=== PATIENT | female | born 1940 | race Caucasian/White ===

== ENCOUNTER 2021-04-21 14:30 | Observation (INO) ==
[2021-04-21 15:26] LABS: Bacteria,Urine Few per hpf (None-Few); Bilirubin,Urine Negative (Negative); Blood,Urine Trace (Negative); Clarity,Urine Clear (Clear); Color,Urine Light-Yellow (Yellow); Glucose,Urine (UA) Normal (Normal); Hyaline Casts,Urine Few per lpf (None Seen); Ketones,Urine Negative (Negative); Leukocyte Esterase,Urine Small (Negative); Mucus,Urine Few per lpf (None-Few); Nitrite,Urine Positive (Negative); PH,Urine 5.5 pH Units (5.0-8.0); Protein,Urine 30 mg/dL (Neg-Trace); RBC,Urine 0-3 per hpf (0-3); Specific Gravity,Urine 1.011 (1.010-1.025); Squamous Epithelial Cell,Urine Few per hpf (None-Few); Urobilinogen,Urine Normal (Normal); WBC,Urine 30-50 per hpf (0-3)
[2021-04-21 15:30] LABS: Amphetamine Screen,Urine Negative ng/mL (Cutoff=1000); Barbiturate Screen,Urine Negative ng/mL (Cutoff=200); Benzodiazepines Screen,Urine Negative ng/mL (Cutoff=200); Cannabinoid Screen,Urine Negative ng/mL (Cutoff = 50); Cocaine Screen,Urine Negative ng/mL (Cutoff= 300); Opiate Screen,Urine Negative ng/mL (Cutoff=300); Phencyclidine Screen,Urine Negative ng/mL (Cutoff=25)
[2021-04-21 15:34] LABS: Basophils % 0.3 %; Hemoglobin 10.5 g/dL (11.5-15.4); Immature Granulocytes % 0.6 % (0-4); Lymphocytes # 2.3 K/mcL (0.6-4.6); Lymphocytes % 33.1 %; Mean Corpuscular Hemoglobin 26.8 pg (28.0-33.3); Mean Corpuscular Volume 89.3 fL (83.0-100.0); Mean Platelet Volume 8.8 fL (9.4-12.4); Monocytes # 0.6 K/mcL (0.0-1.3); Monocytes % 8.8 %; Neutrophils # 4.1 K/mcL (1.6-8.9); Platelet Count 243 K/mcL (140-400); Red Blood Count 3.92 M/mcL (3.82-4.97); Red Cell Distribution Width 16.3 % (11.5-14.5); Segmented Neutrophils % 57.2 %; White Blood Count 7.1 K/mcL (4.3-11.1)
[2021-04-21 15:57] LABS: Acetaminophen < 10 mcg/mL (10-20); BUN/Creatinine Ratio 11 (6-26); Blood Urea Nitrogen 21 mg/dL (8-23); Calcium 9.1 mg/dL (8.6-10.3); Carbon Dioxide 25 mEq/L (23-29); Chloride 108 mEq/L (98-107); Ethanol < 10 mg/dL (Less than 10); Glucose 128 mg/dL (70-105); Osmolality,Calculated 295 (280-300); Potassium 5.1 mEq/L (3.5-5.1); Salicylate < 2.5 mg/dL (15.0-30.0); Sodium 140 mEq/L (136-145); eGFR For African Americans 31 (> 60); eGFR For Non-African Americans 26 (> 60)
[2021-04-21] MEDS ORDERED: Sulfamethoxazole/Trimeth DS 1 EACH TABLET PO ONE (16:04)
[2021-04-21] MEDS ORDERED: OLANZapine 5 MG TAB.RAPDIS PO ONE (22:45)
[2021-04-21 22:46] LABS: Influenza A PCR Negative (Negative); Influenza B PCR Negative (Negative); Resp. Syncytial Virus PCR Negative (Negative)
[2021-04-21 22:51] LABS: SARS-CoV-2 by PCR (In House) Positive (Negative)
[2021-04-22] MEDS ORDERED: QUEtiapine Fumarate 25 MG TABLET PO ONE (00:16)
[2021-04-22] MEDS ORDERED: Naloxone 0.4 MG/ML INJ IVP PRN (02:21)
[2021-04-22] MEDS ORDERED: Ondansetron 4 MG/2 ML VIAL IVP PRN (02:21)
[2021-04-22] MEDS ORDERED: Acetaminophen 325 MG TABLET PO PRN (02:21)
[2021-04-22] MEDS ORDERED: Ipratropium/Albuterol Neb 3 ML IH PRN (04:51)
[2021-04-22] MEDS ORDERED: Haloperidol Lactate 5 MG/ML VIAL IVP ONE ×2 (04:52→16:38)
[2021-04-22 05:07] LABS: Hematocrit 31.6 % (35.3-44.9); Hemoglobin 10.1 g/dL (11.5-15.4); Immature Granulocytes % 0.8 % (0-4); Lymphocytes # 1.8 K/mcL (0.6-4.6); Lymphocytes % 28.3 %; Mean Corpuscular Hemoglobin 28.1 pg (28.0-33.3); Mean Corpuscular Volume 87.8 fL (83.0-100.0); Mean Platelet Volume 8.5 fL (9.4-12.4); Monocytes # 0.7 K/mcL (0.0-1.3); Monocytes % 10.7 %; Neutrophils # 3.9 K/mcL (1.6-8.9); Platelet Count 217 K/mcL (140-400); Red Cell Distribution Width 16.1 % (11.5-14.5); Segmented Neutrophils % 60.2 %; White Blood Count 6.5 K/mcL (4.3-11.1)
[2021-04-22 05:15] LABS: INR 1.1; Prothrombin Time 11.8 Seconds (9.4-12.1)
[2021-04-22 05:28] LABS: Albumin 2.9 g/dL (3.5-5.7); Albumin/Globulin Ratio 0.9 (1.1-2.2); Bilirubin,Direct 0.1 mg/dL (0.0-0.2); Bilirubin,Indirect 0.4 mg/dL (0.0-1.0); Bilirubin,Total 0.5 mg/dL (0.3-1.0); Calcium 8.5 mg/dL (8.6-10.3); Globulin 3.1 g/dL (2.4-3.5); Magnesium 1.9 mg/dL (1.6-2.6); Phosphorous 2.5 mg/dL (2.7-4.5); Potassium 4.1 mEq/L (3.5-5.1)
[2021-04-22 05:41] LABS: Thyroid Stimulating Hormone 20.106 mcIU/mL (0.340-5.600)
[2021-04-22] MEDS: cefTRIAXone 1,000 MG in 0.9 % Sodium Chloride 10 ML IVP SCH (05:42)
[2021-04-22 06:46] LABS: Estimated Average Glucose 174 mg/dl; Hemoglobin A1C 7.7 %
[2021-04-22 08:54] LABS: Triiodothyronine (T3) Free 1.9 pg/mL (2.50-3.90)
[2021-04-22] MEDS ORDERED: 0.9 % Sodium Chloride 1,000 ML IVC SCH (11:45)
[2021-04-22] MEDS: Venlafaxine XR (24 HR) 75 MG CAP.ER.24H PO SCH (14:35)
[2021-04-22] MEDS: Divalproex Sodium 125 MG Sprinkle Capsule (DR) PO SCH ×2 (14:35→21:30)
[2021-04-22] MEDS: OLANZapine 5 MG TAB.RAPDIS PO SCH (17:01)
[2021-04-22] MEDS: Haloperidol Lactate 5 MG/ML VIAL IVP PRN (23:06)
[2021-04-23 01:30] LABS: Basophils % 0.1 %; Hemoglobin 9.6 g/dL (11.5-15.4); Immature Granulocytes % 0.6 % (0-4); Lymphocytes % 36.3 %; Mean Corpuscular Volume 90.1 fL (83.0-100.0); Monocytes % 11.6 %; Neutrophils # 4.3 K/mcL (1.6-8.9); Platelet Count 231 K/mcL (140-400); Red Blood Count 3.55 M/mcL (3.82-4.97); Red Cell Distribution Width 16.6 % (11.5-14.5); Segmented Neutrophils % 51.4 %; White Blood Count 8.3 K/mcL (4.3-11.1)
[2021-04-23 01:56] LABS: Calcium 8.4 mg/dL (8.6-10.3); Potassium 4.3 mEq/L (3.5-5.1)
[2021-04-23] MEDS: Haloperidol Lactate 5 MG/ML VIAL IVP PRN ×2 (04:58→11:45)
[2021-04-23] MEDS ORDERED: Furosemide 20 MG TABLET PO SCH (09:00)
[2021-04-23] MEDS: Metoprolol XL (24 HR) Succ 25 MG TAB.ER.24H PO SCH (09:40)
[2021-04-23] MEDS: Venlafaxine XR (24 HR) 75 MG CAP.ER.24H PO SCH (09:42)
[2021-04-23] MEDS: Gabapentin 300 MG CAPSULE PO SCH ×3 (09:42→20:11)
[2021-04-23] MEDS: Divalproex Sodium 125 MG Sprinkle Capsule (DR) PO SCH ×2 (09:43→20:11)
[2021-04-23] MEDS: cefTRIAXone 1,000 MG in 0.9 % Sodium Chloride 10 ML IVP SCH (09:47)
[2021-04-23] MEDS: Famotidine 20 MG TABLET PO SCH ×2 (09:54→16:16)
[2021-04-23] MEDS: OLANZapine 5 MG TAB.RAPDIS PO SCH (18:10)
[2021-04-23] MEDS ORDERED: Melatonin 3 MG TABLET PO SCH (21:00)
[2021-04-24 04:55] LABS: Hematocrit 29.9 % (35.3-44.9); Hemoglobin 9.2 g/dL (11.5-15.4); Mean Corpuscular HGB Conc 30.8 g/dL (31.6-35.5); Mean Corpuscular Hemoglobin 27.6 pg (28.0-33.3); Mean Corpuscular Volume 89.8 fL (83.0-100.0); Platelet Count 210 K/mcL (140-400); Red Blood Count 3.33 M/mcL (3.82-4.97); Red Cell Distribution Width 17.1 % (11.5-14.5)
[2021-04-24 05:14] LABS: Potassium 4.5 mEq/L (3.5-5.1)
[2021-04-24 05:29] LABS: Anisocytosis 1+ (Not Present); Lymphocytes # 3.5 K/mcL (0.6-4.6); Monocytes # 0.7 K/mcL (0.0-1.3); Neutrophils # 2.8 K/mcL (1.6-8.9); Platelet Estimate Normal (Normal)
[2021-04-24] MEDS: Famotidine 20 MG TABLET PO SCH (05:30)
[2021-04-24] MEDS ORDERED: 0.9 % Sodium Chloride 1,000 ML IVC SCH (07:30)
[2021-04-24] MEDS: cefTRIAXone 1,000 MG in 0.9 % Sodium Chloride 10 ML IVP SCH (09:02)
[2021-04-24] MEDS: Metoprolol XL (24 HR) Succ 25 MG TAB.ER.24H PO SCH (09:05)
[2021-04-24] MEDS: Divalproex Sodium 125 MG Sprinkle Capsule (DR) PO SCH (09:05)
[2021-04-24] MEDS: Gabapentin 300 MG CAPSULE PO SCH ×2 (09:05→15:55)
[2021-04-24] MEDS: Venlafaxine XR (24 HR) 75 MG CAP.ER.24H PO SCH (09:05)
[2021-04-24 13:32] VITALS: BP 97/53; PULSE 50; TEMP 98; O2SAT 94
[2021-04-25] MEDS ORDERED: Famotidine 20 MG TABLET PO SCH (09:00)
== END 2021-04-24 16:22 ==
LOC: 3BNU 14:30 → EMEROOARM 14:30 → SUATTDRO 04-22 01:17 → 3BNU 04-22 02:04
PROVIDERS: ADMIT Student in an Organized Health Care Education/Training Program; ATTEND Family Medicine